=== PATIENT | male | born 1955 | race Caucasian/White ===

== ENCOUNTER → 2021-10-06 | Outpatient (CLI) | payer OTHER ==
--- NOTE | 2021-10-06 11:31 | RAD ---
Examination: Left Lower Extremity Venous Doppler Ultrasound History: Left lower extremity pain, cellulitis Comparison: None Procedure: Valdivia scale, color flow 2D and spectal waveform analysis images are obtained with and witho ut compression in the area of the common femoral vein, superficial femoral vein - femoral vein juncti on, main femoral vein (superficial femoral vein) and popliteal vein. Veins of the proximal calf are a lso imaged. Findings: There is normal duplex flow, color flow and compressibility of all visualized vein segments. No evide nce of deep venous thrombus is present. Impression: No evidence of DVT in the left lower extremity venous system. Electronically signed by: Nazario Burns MD (10/06/2021 11:29 AM) [id number]
== END ==
LOC: US 10:59
PROVIDERS: ATTEND Family Medicine
DX: L03.116 Cellulitis of left lower limb (principal)
CPT/HCPCS: 93971

== ENCOUNTER → 2021-12-19 | Outpatient (CLI) | payer MEDICARE ==
--- NOTE | 2021-12-19 13:03 | KCIC ---
EXAMINATION: MRI RIGHT LOWER EXTREMITY JOINT WITHOUT INDICATIONS: Chronic right hip pain. TECHNIQUE: Multiplanar multisequence MRI of the right hip was obtained without contrast. COMPARISON: None. FINDINGS: BONES AND CARTILAGE: No acute fracture. Marrow signal is normal. Articular cartilage is intact. The p ubic symphysis and visualized portion of the sacroiliac joints are unremarkable. LABRUM: There is a degenerative tear of the anterior superior labrum, which is mildly irregular (imag e 12, series 9). MUSCLES, TENDONS, AND BURSAE: Mild gluteus medius and minimus tendinopathy. Mild hamstrings tendinopa thy. No bursitis. The iliopsoas, rectus femoris, and adductor tendons are intact. Muscles are normal in signal and bulk. Ischiofemoral space is normal. OTHER: Small amount of fluid in the joint. Visualized pelvic contents are unremarkable. IMPRESSION: 1. Mild gluteus medius and minimus tendinopathy. 2. Mild hamstrings tendinopathy. 3. Degenerative labral tear. Electronically signed by: Gisella Morse MD (12/19/2021 1:00 PM) [id number]
== END ==
LOC: KCIC MRI 09:16
PROVIDERS: ATTEND Orthopaedic Surgery
DX: S73.101A Unspecified sprain of right hip, initial encounter (principal); M16.11 Unilateral primary osteoarthritis, right hip; M25.851 Other specified joint disorders, right hip; X58.XXXA Exposure to other specified factors, initial encounter; Y93.89 Activity, other specified; Y92.89 Other specified places as the place of occurrence of the external cause; Y99.8 Other external cause status
CPT/HCPCS: 73721

== ENCOUNTER → 2022-01-01 | Outpatient (CLI) | payer MEDICARE ==
[~2022-01-01] MED LIST: AMLO-186 PO; ATOR40TA59 PO; DEXAMETHASONE PRES.FREE 10 MG/ML VIAL. ONE; GABA800T5 PO; GLIM4TAB8 PO; IBUP-1007 PO; IOHEXOL 180 MG/ML 10 ML VIAL. ONE; LISI-130 PO; METF10007 PO
--- NOTE | 2022-01-01 13:08 | PDOC4 ---
Procedure Note: ICD 10 Code: ICD 10 Code: M54.16 M51.36 M48.06 Procedure Note: Patient was consented for lumbar epidural steroid injection with fluoroscopic guidance. Risks were discussed including but not limited to: Bleeding, infection, possibility of epidural hematoma and subsequent neurological compromise, dural puncture, headaches, spinal cord and/or nerve damage, side effects of steroid medication, and poor results regarding pain control. Patient understands and wished to proceed. Procedure is lumbar epidural steroid injection under local anesthetic using ster ile prep and drape at the L4-5 level using C-arm fluoroscopic guidance in both AP and lateral views medications injected is 20 mg dexamethasone +10mL preservative-free normal saline and 2 mL contrast- condition at discharge is stable patient tolerated procedure well had no complications. TAURUS GILL MD Jan 01, 2022 13:08
--- NOTE | 2022-01-01 13:08 | PDOC1 ---
INITIAL PAIN CONSULT DATE OF SERVICE: DOS: DATE: 01/01/22 TIME: 12:57 CHIEF COMPLAINT: Chief Complaint: Low back and right lower extremity pain HISTORY OF PRESENT ILLNESS: 66-year-old male presents history of pain low back and right lower extremity for about 1 year not the result of any specific injury or accident that he is aware of but is getting worse over time and attributed to his hip he is recently seen his orthopedic surgeon who did MRI scans of the hip and pelvis showing some mild gluteus medius and minimus tendinopathy with mild hamstring tendinopathy and a degenerative labral tear but otherwise no significant findings of significant osteoarthritis. Patient reports pain is shooting and tingling changes during the day worse with walking and activity good in the morning but that as a day goes by gets significantly severe by about 4:56 in the afternoon patient reports he must sit down and rest to decrease the pain which does but after about 5 minutes he gets up and starts walking again and the whole process repeat after about another 15 minutes patient reports he generally does not awaken from sleep at night feels better with sitting or laying down does not affect his bowel bladder control does affect his ability walk significantly although is not use any assistive devices. Patient reports that has been taking ibuprofen which is not helping the pain patient reports a disability rating 0-10 10 being the worst is an 8 with family home responsibilities 10 with recreation 6 with social activity 8 with self-care. Patient reports no loss of motor function but significant fatigability of the right lower extremity with pain rating the posterior gluteus lateral thigh anterior thigh medial thigh medial knee into the medial calf as well. PAST MEDICAL HISTORY: PMH: Hypertension, type 2 diabetes, cigarette smoking, arthritis PREVIOUS SURGERIES: Past Surgical Hx: Left rotator cuff repair 2006 CURRENT MEDICATIONS: Current Meds: Active Scripts Medications Dose Route/Sig Max Daily Dose Days Date Category Ibuprofen 600 Mg Tablet 600 Mg PO PRN Q6HRS PRN 01/01/22 Reported Amlodipine Besylate 5 Mg Tablet 5 Mg PO DAILY 01/01/22 Reported Glimepiride 4 Mg Tablet 1 Tab PO DAILY 01/01/22 Reported Lisinopril 40 Mg Tablet 1 Tab PO DAILY 01/01/22 Reported Atorvastatin Calcium 40 Mg Tablet 1 Tab PO DAILY 01/01/22 Reported Gabapentin 800 Mg Tablet 800 Mg PO BID 01/01/22 Reported Metformin Hcl 1,000 Mg Tablet 1,000 Mg PO BIDWMEALS 4/28/22 Reported FAMILY HISTORY: Family Hx: No major medical problems or conditions that he is aware of SOCIAL HISTORY: Social Hx: Patient does not drink alcohol smokes about 1 pack a day has for the past few years continues to smoke not use any illegal illicit or recreational drugs is single, lives locally in [facility] and is currently retired. REVIEW OF SYSTEMS: ROS: Positive for those items mentioned in history of present illness, all systems are reviewed, otherwise negative ,and are complete full and well-documented on patient's chart. PHYSICAL EXAM: VS: Blood pressure is 154/66 pulse 50 respirations 18 temperature 90.1 F height 6 foot 1 inches weight is 226 pounds. PE: PHYSICAL EXAMINATION: GENERAL: The patient is awake, alert, oriented, appropriate, very pleasant in demeanor HEENT: Shows normocephalic, atraumatic. Extraocular movements are intact and symmetrical. Oral cavity: Mucous membranes moist and pink. Dentition is intact. NECK: Shows anterior throat supple without palpable lymphadenopathy noted. Swallow reflex symmetrical. CHEST: Shows normal on inspection. Breath sounds are clear bilaterally, coarse but no rales rhonchi or wheezes auscultated. HEART: Shows S1, S2 clear. No murmurs auscultated. ABDOMEN: Soft, nontender, nondistended. No palpable organomegaly is noted. BACK: Shows spine grossly in the midline. Normal-appearing cervical lordotic curvature. There is slightly increased thoracic kyphosis, some mild flattening of the lumbar lordotic curvature. Lumbar paraspinous muscles show symmetrical on inspection, on palpation shows some moderate tenderness diffusely throughout the upper, middle and lower distribution of the paraspinous muscles bilaterally and also into the lower thoracic paraspinous musculature, firm and tender, but without specific trigger points, without radiation of pain. The patient has good rotational motion of the lumbar spine, both laterally as well as extension and flexion without significant difficulty. No tenderness over the spinous processes, sacrum or sacroiliac regions. EXTREMITIES: Lower extremities show deep tendon reflexes 2+ in the patellar and tendo calcaneus tendons. Motor exam is 4 on a scale of 5 with right dorsiflexion, extension, quadriceps and hamstring flexion and 5/5 on the left. Peripheral pulses are 1+ posterior tibial. No peripheral edema is noted bilaterally. Lower extremities are warm and dry to touch, equal in color and appearance. Straight leg raise noted to be positive on the right about 40 degrees, left side is negative. Gaenslen's and Alan's maneuvers are negative bilaterally. The patient is able to stand, stand on his toes without significant difficulty or loss of balance, walks with a favoring gait does appea r to favor the right lower extremity mildly but not use any assistive device such as canes or walkers to ambulate. SKIN: Shows warm and dry, good turgor. No edema. No sores, rashes or bruising throughout. IMPRESSION: Impression: 66-year-old male with approximate increasing pain low back right lower extremity radicular fashion. Hypertension Diabetes Arthritis Cigarette smoking Plan: Options were discussed with the patient including serve medical management physical therapies and medical techniques. Patient like to pursue medical techniques. We discussed a lumbar epidural steroid injection using description as well as" describe the procedure. Risks were discussed including but not limited to: Bleeding, infection, possibility of epidural hematoma and subsequent neurological compromise, dural puncture, headaches, spinal cord and/or nerve damage, side effects of steroid medication, and poor results regarding pain control. Patient understands and wished to proceed. Patient will return to clinic in approximately 2 weeks for follow-up, was counseled as return appointment, activity level, and side effect to be aware of. Procedure is lumbar epidural steroid injection under local anesthetic using sterile prep and drape at the L4-5 level using C-arm fluoroscopic guidance in both AP and lateral views medications injected is 20 mg dexamethasone +10mL preservative-free normal saline and 2 mL contrast- condition at discharge is stable patient tolerated procedure well had no complications. TAUURS GILL MD Jan 01, 2022 13:08
== END | disposition home or self-care (01) ==
LOC: PNCL 08:13
PROVIDERS: ATTEND Anesthesiology
DX: M51.16 Intervertebral disc disorders with radiculopathy, lumbar region (principal); M48.061 Spinal stenosis, lumbar region without neurogenic claudication; M79.604 Pain in right leg; I10 Essential (primary) hypertension; E11.9 Type 2 diabetes mellitus without complications; M19.90 Unspecified osteoarthritis, unspecified site; Z79.84 Long term (current) use of oral hypoglycemic drugs; Z79.899 Other long term (current) drug therapy
CPT/HCPCS: 62323; J1100; Q9965

== ENCOUNTER → 2022-01-14 | Outpatient (CLI) | payer MEDICARE ==
[~2022-01-14] MED LIST changes: -DEXAMETHASONE PRES.FREE 10 MG/ML VIAL. ONE; -IOHEXOL 180 MG/ML 10 ML VIAL. ONE
--- NOTE | 2022-01-14 10:10 | PDOC ---
Progress Note - Pain Clinic Date of Service: DOS: DATE: 01/14/22 TIME: 10:07 Diagnosis: Dx: Lumbar radiculopathy with lumbar degenerative disease and lumbar spinal stenosis History or Present Illness: HPI: 66-year-old male returns for follow-up status post lumbar epidural steroid injection x1. Patient reports only a day or 2 of decreased pain but with significantly decreased about 80% now the pain returned fairly quickly in the low back and right lower extremity posterior gluteus posterior thigh lateral thigh anterior thigh medial thigh with some weakness in the right leg which is new since his last visit patient reports is becoming much more fatigued with the right leg with standing and walking better with sitting or laying down generally does not awaken her from sleep at night but much more noticeable with fatigability in the right leg since his last visit patient rates it as a 9 on scale 10 is worse over the past week 8 on average 2 to [place] is a 8 today patient reported aching stabbing the back rating the right lower extremity posterior gluteus lateral thigh anterior thigh medial thigh as noted patient reports no bowel or bladder incontinence. Physical Exam: VS: Blood pressure is 140/68 pulse 73 respirations 18 temperature is 98.4 F height is 6 feet 1 inch weight is 225 pounds. PE: PHYSICAL EXAMINATION: GENERAL: The patient is awake, alert, oriented, appropriate, very pleasant in demeanor HEENT: Shows normocephalic, atraumatic. Extraocular movements are intact and symmetrical. Oral cavity: Mucous membranes moist and pink. Dentition is intact. NECK: Shows anterior throat supple without palpable lymphadenopathy noted. Swallow reflex symmetrical. CHEST: Shows normal on inspection. Breath sounds are clear bilaterally. HEART: Shows S1, S2 clear. No murmurs auscultated. ABDOMEN: Soft, nontender, nondistended. No palpable organomegaly is noted. BACK: Shows spine grossly in the midline. Normal-appearing cervical lordotic curvature. There is mildly increased thoracic kyphosis, some minor flattening of the lumbar lordotic curvature. Lumbar paraspinous muscles show symmetrical on inspection, on palpation shows some moderate tenderness diffusely throughout the upper, middle and lower distribution of the paraspinous muscles, but without specific trigger points, without radiation of pain. The patient has good rotational motion of the lumbar spine, both laterally as well as extension and flexion without significant difficulty. EXTREMITIES: Lower extremities show deep tendon reflexes 2+ in the patellar and tendo calcaneus tendons. Motor exam is 4 on a scale of 5 with right dorsiflexion, extension, quadriceps and hamstring flexion and 5/5 on the left. Peripheral pulses are 1+ posterior tibial. No peripheral edema is noted bilaterally. Lower extremities are warm and dry to touch, equal in color and appearance. SKIN: Shows warm and dry, good turgor. No edema. No sores, rashes or bruising throughout. Procedure: Procedure: Options discussed with patient. Patient's old chart was reviewed his current medication regimen updated current review of systems updated today as well. We will order MRI scan lumbar spine as patient still has significant radiculopathy in the right lower extremity with only very minimal decrease in pain after first injection. Patient also inquiring as to neurosurgical evaluation and we will make those arrangements if necessary after MRI scan is performed. In the meantime, patient will continue with stretching and strengthening exercises as well as oral analgesics as currently. Also we will call in a Medrol Dosepak for the patient patient was given instructions as well as side effects to be aware of with the medication. Medication Injected: Med Injected: None Condition at Discharge: Condition at Discharge: Condition at discharge is stable. TAURUS GILL MD January 14, 2022 10:10
== END | disposition home or self-care (01) ==
LOC: PNCL 09:23
PROVIDERS: ATTEND Anesthesiology
DX: M51.16 Intervertebral disc disorders with radiculopathy, lumbar region (principal); M48.061 Spinal stenosis, lumbar region without neurogenic claudication; Z79.899 Other long term (current) drug therapy
CPT/HCPCS: 99212; G0463

== ENCOUNTER → 2022-01-16 | Outpatient (CLI) | payer MEDICARE ==
--- NOTE | 2022-01-16 10:16 | KCIC ---
EXAM: Lumbar spine MRI without contrast. HISTORY: Lumbar radiculopathy. TECHNIQUE: Multiplanar, multisequence magnetic resonance imaging of the lumbar spine was performed wi thout contrast. COMPARISON: None. FINDINGS: There is S-shaped lumbar scoliosis, with dextrocurvature centered at the upper lumbar level s and levocurvature centered at the lower lumbar levels. There is degenerative endplate remodeling wi th disc space narrowing and osteophytosis primarily along the left aspect of L2-L3 and right aspect o f L4-L5. This corresponds with the levels of maximum scoliotic concavity. There is mild retrolisthesi s of L1 on L2, L2 on L3, L3 on L4 and L4 and L5. There are multiple osseous hemangiomas. There is no suspicious osseous lesion. There is no acute or s ubacute fracture. The conus terminates at L1. At T12-L1, there is a disc bulge and endplate remodeling. There is mild bilateral facet arthropathy. There is no stenosis. At L1-L2, there is a disc bulge and endplate remodeling. There is mild bilateral facet arthropathy. T here is no stenosis. At L2-L3, there is a left lateral predominant disc bulge and endplate osteophytosis. There is mild le ft greater than right facet arthropathy. There is prominent dorsal epidural fat. There is moderate le ft foraminal stenosis with abutment the exiting left L2 nerve root. There is moderate central canal s tenosis. At L3-L4, there is a broad-based left lateral recess to foraminal disc protrusion and osteophyte comp bharti superimposed on a left lateral predominant disc bulge and endplate osteophytosis. There is mild t o moderate bilateral facet arthropathy. There is prominent dorsal epidural fat. There is mild right a nd [id number] left foraminal stenosis. There is severe central canal stenosis. At L4-L5, there is a right lateral recess to foraminal disc protrusion and osteophyte complex superim posed on a right lateral predominant disc bulge and endplate osteophytosis. There is moderate to bianka re right and mild left facet arthropathy. There is moderate to severe right foraminal stenosis. There is mild central canal stenosis. At L5-S1, there is a left foraminal to extra foraminal disc protrusion and osteophyte complex superim posed on a left lateral predominant disc bulge and endplate osteophytosis. There is mild right and mi ld to moderate left facet arthropathy. There is mild right and moderate to severe left foraminal sten osis. IMPRESSION: Multilevel degenerative change involving the lumbar spine, described in detail above. Thi s results in significant stenosis at the aforementioned levels. The right foraminal stenosis is most significant at L4-L5. The left foraminal stenosis is most significant at L5-S1. The central canal cole nosis is most significant at L3-L4. Electronically signed by: Anali Guy MD (01/16/2022 10:14 AM) [id number]
== END ==
LOC: KCIC MRI 07:55
PROVIDERS: ATTEND Anesthesiology
DX: M47.26 Other spondylosis with radiculopathy, lumbar region (principal); M51.27 Other intervertebral disc displacement, lumbosacral region; M48.8X7 Other specified spondylopathies, lumbosacral region; M48.07 Spinal stenosis, lumbosacral region; M41.86 Other forms of scoliosis, lumbar region; M43.16 Spondylolisthesis, lumbar region; M43.8X6 Other specified deforming dorsopathies, lumbar region; M25.78 Osteophyte, vertebrae
CPT/HCPCS: 72148

== ENCOUNTER → 2022-01-28 | Outpatient (CLI) | payer MEDICARE ==
[~2022-01-28] MED LIST changes: +BUPIVACAINE MPF 0.25% 10 ML VIAL. ONE; +DEXAMETHASONE PRES.FREE 10 MG/ML VIAL. ONE; +IOHEXOL 180 MG/ML 10 ML VIAL. ONE
--- NOTE | 2022-01-28 10:06 | PDOC ---
Progress Note - Pain Clinic Date of Service: DOS: DATE: 01/28/22 TIME: 10:06 Diagnosis: Dx: Progress Note - Pain Clinic Date of Service: DOS: DATE: 01/28/22 TIME: 09:26 Diagnosis: Dx: Lumbar radiculopathy with lumbar degenerative disease and lumbar spinal stenosis History or Present Illness: HPI: 66-year-old male returns for follow-up status post lumbar epidural steroid injection x1. Patient reports about 50% improvement but very short-lived and the pain has not across the low back but more only on the right side this time and only in the right leg patient reports the left side is cleared up fairly well but the right side still significant pain posterior gluteus lateral thigh anterior thigh medial thigh medial lower leg into the medial knee as well as the thigh on the right side worse with walking standing changing positions patient reports initially the first few days he was doing better with distance walking doing household activities and try with greater ease but now is significantly increased in the right leg waking him from sleep at night about every 4-5 hours rates the pain as a 9 on scale 10 is worse over the past week 8 on average 5 to [place]as[place] is 8 today patient went to stabbing type and constant with walking and standing better with sitting lying down but again disturbing sleep significantly. Patient reports no loss of motor function no bowel or bladder incontinence. Physical Exam: VS: Blood pressure is 139/71 pulse 61 respirations 18 temperature 98.2 F height is 6 feet 1 inch weight is 222 pounds. PE: PHYSICAL EXAMINATION: GENERAL: The patient is awake, alert, oriented, appropriate, very pleasant in demeanor HEENT: Shows normocephalic, atraumatic. Extraocular movements are intact and symmetrical. Oral cavity: Mucous membranes moist and pink. Dentition is intact. NECK: Shows anterior throat supple without palpable lymphadenopathy noted. Swallow reflex symmetrical. CHEST: Shows normal on inspection. Breath sounds are clear bilaterally, no rales rhonchi or wheezes auscultated. HEART: Shows S1, S2 clear. No murmurs auscultated. ABDOMEN: Soft, nontender, nondistended. No palpable organomegaly is noted. BACK: Shows spine grossly in the midline. Normal-appearing cervical lordotic curvature. There is slightly increased thoracic kyphosis, some mild flattening of the lumbar lordotic curvature. Lumbar paraspinous muscles show symmetrical on inspection, on palpation shows some moderate tenderness diffusely throughout the upper, middle and lower distribution of the paraspinous muscles, but without specific trigger points, without radiation of pain. The patient has good rotational motion of the lumbar spine, both laterally as well as extension and flexion without significant difficulty. EXTREMITIES: Lower extremities show deep tendon reflexes 2 in the patellar and tendo calcaneus tendons. Motor exam is 4 on a scale of 5 with right dorsiflexion, extension, quadriceps and hamstring flexion and 5/5 on the left. Peripheral pulses are 1+ posterior tibial. No peripheral edema is noted bilaterally. Lower extremities are warm and dry to touch, equal in color and appearance. SKIN: Shows warm and dry, good turgor. No edema. No sores, rashes or bruising throughout. Procedure: Procedure: Options were discussed with the patient. Patient's old chart was reviewed as was his current medication regimen updated current review of systems updated today as well. We will proceed with a right L4-5 transforaminal lumbar epidural steroid injection today with fluoroscopic guidance. Risks were discussed including but not limited to: Bleeding, infection, possibility of epidural hematoma and subsequent neurological compromise, dural puncture, headaches, spinal cord and/or nerve damage, side effects of steroid medication, potential injection of vertebral artery at that level and permanent ischemic damage, and poor results regarding pain control. Patient understands and wished to proceed. Patient return to clinic in approximately 4 weeks for follow-up and was counseled as to return appointment activity level and side effects to be aware of. Medication Injected: Med Injected: Under sterile prep and drape patient was placed in prone position using C-arm fluoroscopic guidance to identify the L4-5 distribution oblique and slightly cephalad angled C arm. The right L4-5 target was identified and using lidocaine for anesthetizing the skin 22-gauge Kan pencil point needle was then used to enter the skin and into the subcutaneous tissues using direct C-arm fluoroscopic guidance to guide the needle into the transforaminal aspect of the right L4-5 vertebrae this was confirmed with lateral views showing the needle tip in the superior aspect of the paravertebral region. Aspiration was noted to be negative, -1.5 cc of contrast was then injected with good spread both medially into the epidural space as well as laterally along the nerve root without uptake and without distribution and uptake on digital subtraction. At this time, a solution containing 2 cc of 0.25% bupivacaine and 20 mg dexamethasone was then injected. Needle was withdrawn and sterile bandage was applied. Patient tolerated procedure well had no immediate complications Condition at Discharge: Condition at Discharge: Condition at discharge stable, patient tolerated the procedure well and had no complications. Physical Exam: PE: TAURUS GILL MD January 28, 2022 10:06
--- NOTE | 2022-01-28 10:07 | PDOC4 ---
Procedure Note: Procedure Note: Procedure Note: ICD 10 Code: ICD 10 Code: M54.16 M51.36 M48.06 Procedure Note: Patient was consented for right L4-5 transforaminal epidural steroid injection with fluoroscopic guidance risks were discussed including but not limited to: Bleeding, infection, possibility of epidural hematoma and subsequent neurological compromise, dural puncture, headaches, spinal cord and/or nerve damage, side effects of steroid medication, potential injection into the vertebral artery at that level and permanent ischemic damage, and poor results regarding pain control. Patient understands and wished to proceed. Under sterile prep and drape patient was placed in prone position using C-arm fluoroscopic guidance to identify the L4-5 distribution oblique and slightly cephalad angled C arm. The right L4-5 target was identified and using lidocaine for anesthetizing the skin 22-gauge Kan pencil point needle was then used to enter the skin and into the subcutaneous tissues using direct C-arm fluoroscopic guidance to guide the needle into the transforaminal aspect of the right L4-5 vertebrae this was confirmed with lateral views showing the needle ti p in the superior aspect of the paravertebral region. Aspiration was noted to be negative, -1.5 cc of contrast was then injected with good spread both medially into the epidural space as well as laterally along the nerve root without uptake and without distribution and uptake on digital subtraction. At this time, a solution containing 2 cc of 0.25% bupivacaine and 20 mg dexametha sone was then injected. Needle was withdrawn and sterile bandage was applied. Patient tolerated procedure well had no immediate complications TAURUS GILL MD, BRIAN N MD January 28, 2022 10:07
== END | disposition home or self-care (01) ==
LOC: PNCL 08:28
PROVIDERS: ATTEND Anesthesiology
DX: M51.16 Intervertebral disc disorders with radiculopathy, lumbar region (principal); M48.061 Spinal stenosis, lumbar region without neurogenic claudication; Z79.84 Long term (current) use of oral hypoglycemic drugs; Z79.899 Other long term (current) drug therapy
CPT/HCPCS: 64483; J1100; J3490; Q9965